=== PATIENT | male | born 2000 | race Two or more races ===

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

== ENCOUNTER 2020-03-28 11:14 | Emergency (ER) | payer SELFPAY ==
[~2020-03-28] VITALS: Ht 175.3 cm; Wt 104.4 kg
[2020-03-28 11:18] VITALS: BP 123/78
== END 2020-03-28 12:04 | disposition home or self-care (01) ==
LOC: ED 11:45
DX: R11.0 Nausea (principal); R10.84 Generalized abdominal pain
CPT/HCPCS: 99281